=== PATIENT | male | born 1985 | race African-American/Black ===

== ENCOUNTER 2020-10-05 12:45 | Emergency (ER) | payer OTHER ==
[~2020-10-05] VITALS: Ht 160 cm; Wt 63.5 kg
[2020-10-06 01:15] VITALS: BP 122/83; TEMP 98.2
== END 2020-10-06 01:15 | disposition short-term general hospital (02) ==
LOC: ED 12:45
PROC: 0RSJXZZ Reposition Right Shoulder Joint, External Approach (ICD-10-PCS; principal; 2020-10-05)
DX: S43.084A Other dislocation of right shoulder joint, initial encounter (principal)
CPT/HCPCS: 96360; 96372; 96375; 96376; 99285; J2175; J3490